=== PATIENT | female | born 1930 | race Caucasian/White ===

== ENCOUNTER 2019-03-08 10:49 | Emergency (ER) | payer MEDICARE ==
[~2019-03-08] VITALS: Ht 170.2 cm; Wt 56.7 kg
--- NOTE | 2019-03-08 11:20 | PHYS DOC ---
Adult General Chief Complaint Chief Complaint: ANKLE PROBLEM HPI HPI 88-year-old female presents with right ankle pain. The patient stood up at her computer desk yesterday and her ankle rolled internally and she fell to the ground. She hit her head and stayed on the ground for "a while" but then was able to get herself up. She was not able to put a lot of weight on the ankle. She did not attempt to stand on it until this morning. This morning, she woke up and was very swollen and it is painful to put any weight on it. It is also painful to touch the lateral malleolus or move the foot around. She denies loss of consciousness. She does not have a headache. She does not have any other injuries. The patient does not take daily medications. She is not on an anticoagulant or antiplatelet. She did take an aspirin this morning for pain. Review of Systems Review of Systems Constitutional: Denies fever or chills [] Eyes: Denies change in visual acuity, redness, or eye pain [] HENT: Denies nasal congestion or sore throat [] Respiratory: Denies cough or shortness of breath [] Cardiovascular: No additional information not addressed in HPI [] GI: Denies abdominal pain, nausea, vomiting, bloody stools or diarrhea [] : Denies dysuria or hematuria [] Musculoskeletal: Right ankle pain[] Integument: Denies rash or skin lesions [] Neurologic: Denies headache, focal weakness or sensory changes [] Endocrine: Denies polyuria or polydipsia [] All other systems were reviewed and found to be within normal limits, except as documented in this note. Allergies Allergies Allergies Coded Allergies Type Severity Reaction Last Updated Verified codeine Allergy Unknown 03/08/19 Yes Physical Exam Physical Exam Constitutional: Well developed, well nourished, no acute distress, non-toxic appearance. [] HENT: Normocephalic, atraumatic, bilateral external ears normal, oropharynx moist, no oral exudates, nose normal. [] Eyes: PERRLA, EOMI, conjunctiva normal, no discharge. [] Neck: Normal range of motion, no tenderness, supple, no stridor. [] Cardiovascular:Heart rate regular rhythm, no murmur [] Lungs & Thorax: Bilateral breath sounds clear to auscultation [] Abdomen: Bowel sounds normal, soft, no tenderness, no masses, no pulsatile masses. [] Skin: Warm, dry, no erythema, no rash. [] Back: No tenderness, no CVA tenderness. [] Extremities: Right ankle tender to palp patient of the lateral malleolus, ecchymosis, or significant swelling, no obvious deformity.[] Neurologic: Alert and oriented X 3, normal motor function, normal sensory function, no focal deficits noted. [] Psychologic: Affect normal, judgement normal, mood normal. [] EKG EKG [] Radiology/Procedures Radiology/Procedures [] Impressions: ABDOMEN AP Clinical Indication: Evaluate constipation. Comparison: None. Findings: Bilateral fallopian tube occlusion devices are noted. No dilated loops of bowel are seen. The bowel gas pattern is nonobstructive. No organomegaly is identified. There is scattered air and stool in the colon. There is no unexpected radiopaque foreign body or calculus. There is no acute bony abnormality. IMPRESSION: Nonobstructive bowel gas pattern. Electronically signed by: Darryn Renee MD (03/08/2019 11:57 AM) [id number] DICTATED AND SIGNED BY: DARRYN RENEE MD DATE: 03/08/19 1157 CC: ABIMAEL LEAVITT DO; JADON CHEN ~ Course & Med Decision Making Course & Med Decision Making Pertinent Labs and Imaging studies reviewed. (See chart for details) The patient's x-rays do show avulsion fracture of the distal fibula. The patient likely has significant sprain of the ankle ligaments as well. We'll place her in an air splint, crutches or wheelchair, and advise that she follow up with orthopedics. I will discharge her with [place] 5/325. She is stable for discharge at this time. [] Dragon Disclaimer Dragon Disclaimer This electronic medical record was generated, in whole or in part, using a voice recognition dictation system. Departure Departure: Impression: Primary Impression: Avulsion fracture of distal fibula Additional Impression: Right ankle sprain Disposition: 01 HOME, SELF-CARE Condition: STABLE Referrals: PCP,UNKNOWN (PCP) Patient Instructions: Fibular Fracture, Ankle, Adult, Undisplaced, Treated with Immobilization Additional Instructions: Please call the [facility] for follow-up of your ankle sprain and fracture. The phone number is [phone]. Scripts Hydrocodone Bit/Acetaminophen (NORCO 5-325 TABLET) 1 Each Tablet 1 TAB PO PRN Q6HRS PRN for PAIN, #20 TAB 0 Refills Prov: ABIMAEL LEAVITT DO 03/08/19 Problem Qualifiers Additional Impression: Right ankle sprain Encounter type: initial encounter Involved ligament of ankle: anterior talofibular ligament Qualified Codes: S93.491A - Sprain of other ligament of right ankle, initial encounter ABIMAEL LEAVITT DO Mar 08, 2019 11:20
[2019-03-08 11:34] LABS: BASO % 1 % (0-3); EOS # 0.1 x10^3/uL (0.0-0.7); EOS % 1 % (0-3); HEMATOCRIT 43.9 % (36.0-47.0); HEMOGLOBIN 14.4 g/dL (12.0-15.5); LYMPH # 1.1 x10^3/uL (1.0-4.8); LYMPH % 13 % (24-48); MEAN CORPUSCULAR HEMOGLOBIN 28 pg (25-35); MEAN CORPUSCULAR HGB CONC 33 g/dL (31-37); MEAN CORPUSCULAR VOLUME 87 fL (79-100); MONO # 0.8 x10^3/uL (0.0-1.1); MONO % 10 % (0-9); NEUT # 6.5 x10^3uL (1.8-7.7); NEUT % 76 % (31-73); PLATELET COUNT 265 x10^3/uL (140-400); RED BLOOD COUNT 5.05 x10^6/uL (3.50-5.40); RED CELL DISTRIBUTION WIDTH 14.9 % (11.5-14.5); WHITE BLOOD COUNT 8.6 x10^3/uL (4.0-11.0)
[2019-03-08 11:44] LABS: ALBUMIN 3.5 g/dL (3.4-5.0); CALCIUM 9.2 mg/dL (8.5-10.1); CREATININE 0.8 mg/dL (0.6-1.0); GFR 67.7; POTASSIUM 3.8 mmol/L (3.5-5.1); TOTAL BILIRUBIN 0.7 mg/dL (0.2-1.0)
--- NOTE | 2019-03-08 12:02 | RAD ---
ANKLE RIGHT 3V 03/08/2019 11:01 AM INDICATION: Fall, pain COMPARISON: None available. TECHNIQUE: 3 views of the right ankle are provided. FINDINGS: There is an acute fracture involving the tip of the lateral malleolus with associated soft tissue swelling. Tibial plafond and talar dome are intact. Ankle mortise is congruent. IMPRESSION: Avulsion fracture from the tip of the lateral malleolus with associated soft tissue swelling. Electronically signed by: Elyse Arceo MD (03/08/2019 11:59 AM) [facility]
[2019-03-08] MEDS ORDERED: HYDR-3165 PO (12:16)
[2019-03-08 12:35] VITALS: BP 142/68
== END 2019-03-08 12:35 | disposition home or self-care (01) ==
LOC: ER 10:49
DX: S82.61XA Displaced fracture of lateral malleolus of right fibula, initial encounter for closed fracture (principal); S93.491A Sprain of other ligament of right ankle, initial encounter; Z88.5 Allergy status to narcotic agent; W18.09XA Striking against other object with subsequent fall, initial encounter; Y93.89 Activity, other specified; Y92.89 Other specified places as the place of occurrence of the external cause; Y99.8 Other external cause status
CPT/HCPCS: 29515; 36415; 73610; 80053; 85025; 99285

== ENCOUNTER 2019-12-05 23:46 | Observation (INO) | payer MEDICARE ==
[~2019-12-05] VITALS: Ht 170.2 cm; Wt 64.4 kg
[~2019-12-05 23:46] MED LIST: HYDR-3165 PO
--- NOTE | 2019-12-05 23:59 | PHYS DOC ---
Past History Past Medical History: No Pertinent History Past Surgical History: Cholecystectomy, Hysterectomy Alcohol Use: None Drug Use: None Adult General Chief Complaint Chief Complaint: "... I think I got that Co virus.... I'm just too old.... I am sick.. I feel like I am going to vomit.. got the fever and chills... My neighbor had a virus... Probably caught it from him... I am just so weak... My son called ... the ambulance..I am not right.. I am never sick.. my belly not right.... Usu ally I am never sick... can I have a drink....I got the cotton mouth.... just feel terrible... " HPI HPI Patient is a 89 year old female who presents with above history and complaints of fever, chills, malaise, myalgia, arthralgia, nausea, dyspnea, and weakness. Pt. does not due flu vaccination. Pt. does not follow with a primary. No recent travel outside the [place] area. Has been exposed to neighbors that had flu symptoms. No history immunosuppression. Her dog 'Priyanka Star and other farm animals are well. No hx of bad food intake. Pt. states she has passed some gas.. but feels like she blocked. Poor intake the last two days. Review of Systems Review of Systems Constitutional complaints of fever or chills [] Eyes: Denies change in visual acuity, redness, or eye pain [] HENT: Complains of nasal congestion and drainage Respiratory: Complaints of a nonproductive cough and shortness of breath [] Cardiovascular: No additional information not addressed in HPI [] GI: Denies ,, vomiting, bloody stools or diarrhea [ . The pt.]complaints of nausea and some generalized abdomen discomfort. : Denies dysuria or hematuria [] Musculoskeletal: Complaints of myalgia , arthralgia and generalized weakness Integument: Denies rash or skin lesions [] Neurologic: Denies headache, focal weakness or sensory changes [] Endocrine: Denies polyuria or polydipsia [] All other systems were reviewed and found to be within normal limits, except as documented in this note. Family History Family History Noncontributory Current Medications Current Medications See nursing for home meds Allergies Allergies Allergies Coded Allergies Type Severity Reaction Last Updated Verified codeine Allergy Unknown 03/08/19 Yes Physical Exam Physical Exam Constitutional: Moderate distress, ill in appearance. [] HENT: Normocephalic, atraumatic, bilateral external ears normal, oropharynx dry, no oral exudates, nose normal. Very hard of hearing. Eyes: PERRLA, EOMI, conjunctiva normal, no discharge. [] Neck: Normal range of motion, no tenderness, supple, no stridor. [] Cardiovascular: Tachycardia Heart rate regular rhythm, no murmur [] Lungs & Thorax: Bilateral breath sounds equal apexes scattered wheezes on auscultation [] Abdomen: Bowel sounds hyperactive, soft, mild generalized tenderness, no masses, no pulsatile masses. Old surgery scars. Tympanic. Skin: Warm, dry, no erythema, no rash. Poor turgor Back: No tenderness, no CVA tenderness. [] Extremities: No tenderness, no cyanosis, no clubbing, ROM intact, no edema. Arthritic changes. Neurologic: Alert and oriented X 3, moves extremities on request has distal se nsory and motor function, no focal deficits noted. Chronically hard of hearing Psychologic: Affect anxious, judgement normal, mood normal. Has some obvious short term memory problems. EKG EKG []My interpretation EKG shows a sinus rhythm at 94 bpm. Some nonspecific contour abnormalities in ventricle leads. There are no findings acute STEMI with contralateral changes.[] Radiology/Procedures Radiology/Procedures Signed PATIENT: DANA HERNANDEZ JACCOUNT: [id number] : 1930 LOCATION: ICU AGE: 89 SEX: F EXAM STATUS: ADM IN ORD. PHYSICIAN: FRITZ CALIX MD REASON: Omni 350,80ml IV.Omni 240 30ml PO.Dyspnea,cough,abd pain,ileus PROCEDURE: CT ANGIO CHEST W ABD PEL W/ INDICATION: Chest and abdomen pain COMPARISON: None. TECHNIQUE: Axial CT images obtained through the chest, abdomen and pelvis with contrast with three-dimensional images processed per protocol. One or more of the following individualized dose reduction techniques were utilized for this examination: 1. Automated exposure control; 2. Adjustment of the mA and/or kV according to patient size; 3. Use of iterative reconstruction technique. FINDINGS: Chest: There is some subpleural opacities at the lung apices which is commonly from scarring. Mild patchy opacity left lung base. There is some calcified nodules in the right kidney calcified granulomas. Additional nodule right upper lung medially measuring approximately 4 mm. Severe calcific atherosclerosis. Small hiatal hernia. Coronary artery calcific atherosclerosis. No evidence of thoracic aortic aneurysm. Some limitation of thoracic aortic lumen given that the study was optimized for pulmonary artery evaluation. Mediastinal and right hilar lymphadenopathy. For example right hilum measuring 29 x 23 mm. No central pulmonary embolus. Degenerative changes of spine. Small hiatal hernia. Right upper lung nodule measuring 13 x 7 mm. Abdomen and pelvis: Calcific atherosclerosis. Severe calcific atherosclerosis. Small fat-containing left inguinal hernia. Postcholecystectomy changes. No peripancreatic fluid collection. Spleen unremarkable. No hydronephrosis. Prominence bilateral renal pelvis. Right renal cyst. Urinary bladder is partially distended. No dilated loops of bowel to suggest obstruction. Appendix not well seen. Osseous demineralization. Scoliotic curvature of the spine. Multilevel central canal and neural foraminal stenosis from degenerative changes. IMPRESSION: * No central pulmonary embolus. * Right hilar and perihilar lymphadenopathy. Although this could be reactive in nature neoplastic causes such as central lung neoplasm or enlarged lymph nodes from alternative causes such as lymphoma is within the differential and if further clarification is desired nonemergent PET/CT could BE obtained. There is also some regions of nodularity within the right lung which could be evaluated at that time as well. * No definite CT evidence of bowel obstruction Electronically signed by: Teri Miranda MD (12/06/2019 5:18 AM) [id number] DICTATED AND SIGNED BY: TERI MIRANDA MD DATE: 12/06/19517 CC: FRITZ CALIX MD; MARZENA NORMAN MD; PCP,UNKNOWN ~ [address] [address] IMAGING REPORT Signed PATIENT: DANA HERNANDEZUNT: [id number] : 1930 LOCATION: ER AGE: 89 SEX: F EXAM STATUS: REG ER ORD. PHYSICIAN: FRITZ CALIX MD REASON: Abd pain, nausea, cough PROCEDURE: ACUTE ABDOMEN SERIES INDICATION: Abdominal pain COMPARISON: None. IMPRESSION: 4 views of chest and abdomen. Coarsening of interstitial markings bilaterally. Would correlate for possible causes such as emphysema. Calcific atherosclerosis. Degenerative changes of the spine and hips. Prominent air-filled loops of large and small bowel identified. Would correlate for possible causes such as ileus. Electronically signed by: Teri Miranda MD (12/06/2019 1:31 AM) [id number] DICTATED AND SIGNED BY: TERI MIRANDA MD DATE: 12/06/19 013 CC: FRITZ CALIX MD; PCP,UNKNOWN ~ Course & Med Decision Making Course & Med Decision Making Pertinent Labs and Imaging studies reviewed. (See chart for details) Pt. admitted to Dr. Mirza / Benjamin fay at or. Cardiology consult for CHF. Heart Score 4-5 Impression: 1. Weakness 2. Dehydration 3. UTI 4. Viral Syndrome 5. Ileus- Partial -Suspect Functional 6. Fever 7. Hyponatremia 133 8. Elevated BNP 2,622- diastolic dysfunction 9, Malnutrition Alb. 2.5 10.Elevated D-dimer 5.41 11.Leukocyte Changes Elevated Segs 75, Bands 17 12.Pulmonary Adenopathy- > Rt. Hilar and perihilar. Dragon Disclaimer Dragon Disclaimer This electronic medical record was generated, in whole or in part, using a voice recognition dictation system. Departure Departure: Disposition: 01 HOME/RESIDENCE PRIOR TO ADM Condition: STABLE Referrals: PCP,UNKNOWN (PCP) Dragon Disclaimer This chart was dictated in whole or in part using Voice Recognition software in a busy, high-work load, and often noisy Emergency Department environment. It may contain unintended and wholly unrecognized errors or omissions. Dragon Disclaimer This chart was dictated in whole or in part using Voice Recognition software in a busy, high-work load, and often noisy Emergency Department environment. It may contain unintended and wholly unrecognized errors or omissions. Dragon Disclaimer This chart was dictated in whole or in part using Voice Recognition software in a busy, high-work load, and often noisy Emergency Department environment. It may contain unintended and wholly unrecognized errors or omissions. FRITZ CALIX MD Dec 05, 2019 23:59
[2019-12-06] MEDS: IV RINGERS SOLUTION,LACTATED 1,000 ML IV SCH ×2 (00:19→02:44)
[2019-12-06] MEDS ORDERED: ACETAMINOPHEN 500 MG TABLET PO ONE ×2 (00:20→00:30)
[2019-12-06] MEDS ORDERED: ASPIRIN CHEWABLE 81 MG TABLET. ONE (00:20)
[2019-12-06] MEDS ORDERED: ONDANSETRON PF 4 MG/2 ML VIAL. ONE ×2 (00:23→00:25)
[2019-12-06] MEDS ORDERED: ASPIRIN CHEWABLE 81 MG TABLET. PO ONE (00:30)
[2019-12-06] MEDS ORDERED: ONDANSETRON PF 4 MG/2 ML VIAL. IVP ONE (00:30)
[2019-12-06] MEDS ORDERED: IV RINGERS SOLUTION,LACTATED 1,000 ML IV SCH (00:30)
--- NOTE | 2019-12-06 01:34 | RAD ---
INDICATION: Abdominal pain COMPARISON: None. IMPRESSION: 4 views of chest and abdomen. Coarsening of interstitial markings bilaterally. Would correlate for possible causes such as emphysema. Calcific atherosclerosis. Degenerative changes of the spine and hips. Prominent air-filled loops of large and small bowel identified. Would correlate for possible causes such as ileus. Electronically signed by: Ollie Joseph MD (12/06/2019 1:31 AM) [id number]
[2019-12-06 01:41] LABS: BILIRUBIN,URINE NEG (NEG); CLARITY,URINE HAZY; COLOR,URINE YELLOW; GLUCOSE,URINE NEG (NEG)
[2019-12-06 01:42] LABS: BACTERIA,URINE MANY /HPF (0-FEW); HYALINE CASTS, URINE FEW /HPF; NITRITE,URINE NEG (NEG); SQUAMOUS EPITHELIAL CELL,UR FEW /LPF; UROBILINOGEN,URINE 0.2 mg/dL (0.2 mg/dL)
[2019-12-06 01:49] LABS: BASO % 0 % (0-3); EOS % 0 % (0-3); HEMATOCRIT 40.2 % (36.0-47.0); HEMOGLOBIN 13.5 g/dL (12.0-15.5); LYMPH # 0.4 x10^3/uL (1.0-4.8); LYMPH % 5 % (24-48); MEAN CORPUSCULAR HEMOGLOBIN 28 pg (25-35); MEAN CORPUSCULAR HGB CONC 34 g/dL (31-37); MEAN CORPUSCULAR VOLUME 84 fL (79-100); MONO # 0.3 x10^3/uL (0.0-1.1); MONO % 5 % (0-9); NEUT # 6.1 x10^3uL (1.8-7.7); NEUT % 89 % (31-73); PLATELET COUNT 163 x10^3/uL (140-400); RED CELL DISTRIBUTION WIDTH 14.6 % (11.5-14.5); WHITE BLOOD COUNT 6.8 x10^3/uL (4.0-11.0)
[2019-12-06 01:59] LABS: CALCIUM 8.1 mg/dL (8.5-10.1); GFR 52.2; POTASSIUM 3.5 mmol/L (3.5-5.1)
[2019-12-06 02:12] LABS: ALBUMIN 2.5 g/dL (3.4-5.0); DIRECT BILIRUBIN 0.1 mg/dL (0.0-0.2); MAGNESIUM 1.8 mg/dL (1.8-2.4); TOTAL BILIRUBIN 0.6 mg/dL (0.2-1.0); TOTAL PROTEIN 5.8 g/dL (6.4-8.2)
[2019-12-06] MEDS ORDERED: IV NORMAL SALINE 50ML 50 ML ONE (02:15)
[2019-12-06] MEDS ORDERED: cefTRIAXone SODIUM 1 GM VIAL ONE (02:16)
[2019-12-06] MEDS ORDERED: IOHEXOL 240 MG/ML 50ML VIAL. ONE (02:23)
[2019-12-06] MEDS ORDERED: IV RINGERS SOLUTION,LACTATED 1,000 ML IV ONE (02:30)
[2019-12-06 02:36] LABS: % BANDS 17 % (0-9); % LYMPHS 5 % (24-48); % MONOS 3 % (0-10); % SEGS 75 % (35-66); PLT ESTIMATE ADEQUATE (ADEQUATE)
[2019-12-06 02:44] LABS: INFLUENZA A PATIENT NEGATIVE (NEGATIVE); INFLUENZA B PATIENT NEGATIVE (NEGATIVE)
[2019-12-06] MEDS ORDERED: ENOXAPARIN ** NOTE DOSE ** SYRINGE SQ ONE (02:45)
[2019-12-06 03:19] LABS: SEDIMENTATION RATE 11 (0-25)
[2019-12-06] MEDS ORDERED: ONDANSETRON PF 4 MG/2 ML VIAL. IVP PRN (03:30)
[2019-12-06] MEDS ORDERED: ACETAMINOPHEN 325 MG TABLET PO PRN (03:30)
[2019-12-06] MEDS ORDERED: CONTRAST GIVEN MC PRN (03:45)
[2019-12-06] MEDS ORDERED: IOHEXOL 350 MG/ML 100 ML VIAL. IV ONE (03:45)
[2019-12-06 05:20] VITALS: BP 99/60
--- NOTE | 2019-12-06 05:21 | RAD ---
INDICATION: Chest and abdomen pain COMPARISON: None. TECHNIQUE: Axial CT images obtained through the chest, abdomen and pelvis with contrast with three-dimensional images processed per protocol. One or more of the following individualized dose reduction techniques were utilized for this examination: 1. Automated exposure control; 2. Adjustment of the mA and/or kV according to patient size; 3. Use of iterative reconstruction technique. FINDINGS: Chest: There is some subpleural opacities at the lung apices which is commonly from scarring. Mild patchy opacity left lung base. There is some calcified nodules in the right kidney calcified granulomas. Additional nodule right upper lung medially measuring approximately 4 mm. Severe calcific atherosclerosis. Small hiatal hernia. Coronary artery calcific atherosclerosis. No evidence of thoracic aortic aneurysm. Some limitation of thoracic aortic lumen given that the study was optimized for pulmonary artery evaluation. Mediastinal and right hilar lymphadenopathy. For example right hilum measuring 29 x 23 mm. No central pulmonary embolus. Degenerative changes of spine. Small hiatal hernia. Right upper lung nodule measuring 13 x 7 mm. Abdomen and pelvis: Calcific atherosclerosis. Severe calcific atherosclerosis. Small fat-containing left inguinal hernia. Postcholecystectomy changes. No peripancreatic fluid collection. Spleen unremarkable. No hydronephrosis. Prominence bilateral renal pelvis. Right renal cyst. Urinary bladder is partially distended. No dilated loops of bowel to suggest obstruction. Appendix not well seen. Osseous demineralization. Scoliotic curvature of the spine. Multilevel central canal and neural foraminal stenosis from degenerative changes. IMPRESSION: * No central pulmonary embolus. * Right hilar and perihilar lymphadenopathy. Although this could be reactive in nature neoplastic causes such as central lung neoplasm or enlarged lymph nodes from alternative causes such as lymphoma is within the differential and if further clarification is desired nonemergent PET/CT could BE obtained. There is also some regions of nodularity within the right lung which could be evaluated at that time as well. * No definite CT evidence of bowel obstruction Electronically signed by: Ollie Joseph MD (12/06/2019 5:18 AM) [id number]
--- NOTE | 2019-12-06 05:58 | EKG ---
[address] [address] Test Date: 2019-12-06 Test Time: 00:34:36 Pat Name: DANA HERNANDEZ Department: Room: [facility] 1 Gender: F Novel[employer] Tw[employer] Tender: : 1930 Requested By: FRITZ CALIX Order Number: [id number] Reading MD: Nihcolas Rosas MD Measurements Intervals [place] Rate: 94 P: 69 CA: 148 QRS: 47 QRSD: 82 T: 59 QT: 344 QTc: 430 Interpretive Statements SINUS RHYTHM CONSIDER PRIOR ANTEROSEPTAL INFARCT Electronically Signed On 12-06-2019 10:28:42 CDT by Nicholas Rosas MD
[2019-12-06 06:00] VITALS: BP 108/55
[2019-12-06 08:00] VITALS: BP 113/60
[2019-12-06] MEDS ORDERED: IPRATRPIUM/ALBUTEROL 0.5/2.5MG 3 ML NEBU. NEB SCH (08:00)
[2019-12-06] MEDS ORDERED: ENOXAPARIN ** NOTE DOSE ** SYRINGE SQ SCH ×2 (09:00→15:00)
--- NOTE | 2019-12-06 09:00 | HP ---
ADMIT DATE: 12/06/2019 ATTENDING PHYSICIAN: Dr. Norman. CHIEF COMPLAINT: Weakness and nonspecific symptoms. HISTORY OF PRESENT ILLNESS: The patient is a pleasant 89-year-old female who is very forgetful. She lives alone. Her several years ago. She has a son who lives close by. She presented to the ED in the middle of the night, saying "I don't feel well. I must have the COVID-19 virus." She eventually got swab. Her x-rays were fairly nonspecific. Lab work was fairly unremarkable. Clinically, she was mildly dehydrated. She had some recent episode of nausea. CT of the lungs shows some subpleural opacities with apices from scarring, mild patchy opacity in left lung and some calcified nodules noted. These are nonspecific in nature. Her white count was normal. She did not have any pulmonary symptoms. She denied any dyspnea. Room air saturations were adequate. She said "I got some low-grade fevers, my neighbor had a virus." PAST MEDICAL HISTORY: Significant for cholecystectomy, hysterectomy. I could not get much details because of the patient's confusion. ALLERGIES: She has allergies to CODEINE. HOME MEDICATIONS: None listed. SOCIAL HISTORY: She is a nonsmoker, nondrinker. She is . FAMILY HISTORY: Father of emphysema at age 82. Mom of unknown causes at age 85. REVIEW OF SYSTEMS: Significant for the nausea. She felt better after being in the hospital. History is very sketchy and no family is here. Otherwise, the review of systems is unobtainable. PHYSICAL EXAMINATION: GENERAL: When I saw her, this is a pleasant, confused elderly female. INITIAL VITAL SIGNS: Showed a blood pressure of 121/55, pulse is 76 and regular. She was afebrile. Room air saturation 94% on room air. HEENT: Head is without trauma. Pupils are reactive. Sclerae nonicteric. Oropharynx is clear. NECK: Supple, no bruits identified. LUNGS: Otherwise clear. CARDIOVASCULAR: Showed regular heart tones. No obvious gallops. Peripheral pulses palpable and full. ABDOMEN: Soft, scaphoid, nontender, no organomegaly. Bowel sounds are hypoactive. EXTREMITIES: Show no cyanosis. NEUROLOGIC: Speech is fluent, focally intact. Memory is questionable. PERTINENT LABORATORY STUDIES: The CT of the lungs as noted nonspecific findings. Hemoglobin is 13.5 g/dL, white count of 6800. Chemistry panel, electrolytes, BUN and creatinine within normal range. A troponin was 0.03 and nonischemic. ASSESSMENT: 1. An 89-year-old female with recent upper respiratory tract infection, no clinical evidence of pneumonia or COVID-19. 2. Dementia. 3. Dehydration, resolved. PLAN: 1. Admit to the inpatient observation status. 2. Advance diet as tolerated. 3. Hopefully, we can discharge her later this morning. MARZENA NORMAN MD DR: CALROS/eber JOB#: [id number] / [id number]
--- NOTE | 2019-12-06 09:12 | DS ---
DATE OF DISCHARGE: 12/06/2019 ATTENDING PHYSICIAN: Dr. Norman. FINAL DISCHARGE DIAGNOSES: 1. Mild upper respiratory tract infection, resolved. 2. Dehydration, rehydrated. 3. Underlying dementia. 4. Degenerative arthritis. HISTORY OF PRESENT ILLNESS: This is a very sketchy history, this 89-year-old female had some malaise, chills, fevers. She stated our neighbor had been sick. She was concerned that she had the COVID-19 virus. She was admitted for further treatment and evaluation. PHYSICAL EXAMINATION: Please see the dictated note. PERTINENT LABORATORY AND X-RAY STUDIES: Her hemoglobin was maintained at 13.5 g/dL with a white count of 6800. Chemistry panel unremarkable with normal BUN, creatinine and electrolytes. Troponin level as nonischemic. Unfortunately, she did get a COVID-19 swab, which is pending at the time of discharge. COURSE IN THE HOSPITAL: She was admitted. She did fine, gentle IV hydration. Diet was advanced. She was better. By the time I saw her the next day, her vital signs are quite stable. Her blood pressure was 113/60, pulse is 70 and regular. She was afebrile and her oxygen saturation was 98% on room air. I did review her CT of the chest. There are nonspecific findings. I do not think she has underlying disease process, those are chronic scarring changes. She got better. Diet was advanced. She wanted to go home. I felt this is reasonable. We will notify her of the results of any COVID-19 swab when it is available. She is not on any prescription meds. She is discharged home with instructions to follow a regular diet. She will see her regular physician as tolerated. We contact her son. MARZENA NORMAN MD DR: CARLOS/eber JOB#: [id number] / [id number]
== END 2019-12-06 11:00 | disposition home or self-care (01) ==
LOC: ER 23:46 → INTOOBSV 12-06 02:00 → ICU 12-06 02:00
PROVIDERS: ADMIT Hospitalist; ATTEND Hospitalist
DX: J06.9 Acute upper respiratory infection, unspecified (principal); R53.1 Weakness; E46 Unspecified protein-calorie malnutrition; E86.0 Dehydration; E87.1 Hypo-osmolality and hyponatremia; F03.90 Unspecified dementia, unspecified severity, without behavioral disturbance, psychotic disturbance, mood disturbance, and anxiety; R53.81 Other malaise; K56.7 Ileus, unspecified; M19.90 Unspecified osteoarthritis, unspecified site; R79.89 Other specified abnormal findings of blood chemistry; N39.0 Urinary tract infection, site not specified; Z82.5 Family history of asthma and other chronic lower respiratory diseases; Z90.710 Acquired absence of both cervix and uterus; Z90.49 Acquired absence of other specified parts of digestive tract; R11.2 Nausea with vomiting, unspecified
CPT/HCPCS: 36415; 71275; 74022; 74177; 80048; 80076; 81001; 82150; 82550; 83605; 83690; 83735; 83880; 84443; 84484; 85007; 85025; 85379; 85610; 85651; 85730; 87070; 87086; 87804; 87880; 93005; 94640; 96361; 96365; 96372; 96375; 99285; G0378; J0696; J1650; J2405; J7120; Q9967; 87186; G0379